=== PATIENT | female | born 1995 | race Caucasian/White ===

== ENCOUNTER 2023-08-11 02:45 | Inpatient (IN) | payer OTHER, SELFPAY ==
[2023-08-11 02:45] VITALS: BP 125/77; PULSE 88; RESP 18; TEMP 36.4; O2SAT 100
[2023-08-11 02:47] VITALS: BMI 28.8
[2023-08-11] MEDS: OLANZapine 5 mg ODT PO ×2 (03:32→17:41)
--- NOTE | 2023-08-11 08:44 | PC.NURSE ---
During morning assessment, patient reprots chronic anxiety and depression. Patient denies SI at this moment. Patient also denies HI and AVH.
[2023-08-11] MEDS: hyDROXYzine 25 mg Capsule 50 MG PO ×2 (11:21→20:08)
--- NOTE | 2023-08-11 11:24 | PC.NURSE ---
Patient anxious, particularly about another patient who has been screaming in the [place]. This nurse administered vistaril 50mg PO to patient
--- NOTE | 2023-08-11 11:53 | PC.NURSE ---
This nurse went to help patient find her lunch tray. There wasn't a tray with her name on it. Patient stated, I don't like being left out, it makes me lose my appetite. This nurse informed patient that she didn't get her name on a tray because she came during the night. Patient said, it's okay, I'm not hungry any more. THis nurse offered to specially order food from the cafeteria for her. Patient stated, No thank you.
[2023-08-11 14:00] VITALS: BP 109/72; PULSE 72; RESP 18; TEMP 36.6; O2SAT 99
--- NOTE | 2023-08-11 14:29 | P.NPUHP_ITS ---
Providers/Chief Complaint Admitting Physician: Adarsh Reyes MD Chief Complaint: SI, Depression HPI NPU History of Present Illness Merly Amaro is a 28 year old female who presented to the emergency department at [facility] in [facility] with depression and suicidal ideation. The patient was transferred to the neuropsychiatric unit in [facility] for further evaluation and treatment. The patient had reported that she has been struggling for depression for several years. She reports having chronic problems with managing her worry and often has struggles with falling asleep. She reports that she had been recently distressed by comments made by her family members that made her feel as if she was not receiving support from them. She endorses that she had cut her her arm with a knife vertically on her wrist and distress a few days ago and was upset that her had told her that it was for attention. She reports low energy. She reports having periods of excess fatigue particularly worse in the winter. She reports that her depression has been worse historically in the winter but continues to be present during the other months as well. She denies any thoughts of hurting others but does report thoughts of wanting to kill herself. She had not reported any clear symptoms supportive of bipolar disorder with no history of grandiosity, decreased need for sleep, excess euphoria or increased irritability for brief periods of time. She did report a family history of bipolar depression. She reports having periods of time where her mood is normal for a few days where she feels good but reports that it is fleeting and that most of her time is spent being depressed and describes the symptoms having occurred since childhood. She denied any history of sexual physical or emotional abuse. The patient does report having struggles with managing her anxiety. She reports concerns regarding finances and states that she has not been able to get support to make medication changes with her psychiatrist that she had been seeing online through an online medication management service. She did not endorse any history of psychosis. She did not endorse any history of PTSD related symptoms or any history of binge eating disorder or bulimia. She reports occasional alcohol use and occasional marijuana use but reports otherwise no history of substance abuse. Inpatient psychiatric history: She had reported 1 previous suicide attempt by consuming excess amounts of marijuana Gummies and states that she spent 1 day in the hospital but was not admitted into the psychiatric unit. Outpatient psychiatric history: She had reported previously receiving online psychiatric management and prior to that having received psychotherapy and medication management at [facility]. Previous medication trials : effexor xr, seroquel, lamotrigine Drug and alcohol history: As above, no history of inpatient or outpatient substance abuse treatment. Medical history: None reported Surgical history: History of knee surgeries -Left knee Family psychiatric history: Notable for bipolar disorder and schizophrenia and maternal and paternal grandparents. Current medications: Effexor XR 150 mg daily (stopped 3 days ago) Legal history: None Social history: Patient was raised in [place] by her biological parents. She had reported no problems with learning. She had graduated high school and was involved in athletics in college with a reported degree in biology. She currently works at a retail store. She has been to her current and has no children at this time. she did not report any history of sexual, physical, or emotional abuse. Meds NPU Home Medications Medication Instructions Recorded Confirmed Last Taken Type buspirone 15 mg tablet 15 mg PO PRN PRN Anxiety 08/11/23 08/11/23 Unknown History Allergies Allergy/AdvReac Type Severity Reaction Status Date / Time No Known Allergies Allergy Verified 08/11/23 03:16 Mental Status Exam MSE Comments: Patient is a casually dressed white female who appeared her stated age with good eye contact. Her gait appeared within normal limits. Her hygiene was fair. There was no evidence of any abnormal involuntary motor movements. There was evidence of mild to moderate psychomotor retardation. Her speech was normal in regards to rate rhythm and prosody. Her thought process was linear logical and goal-directed. Her thought content showed evidence of suicidal ideation with current thoughts of cutting herself. She denied any homicidal ideation. She did not appear to be responding to internal stimuli. There was no clear evidence of delusional thinking. There was significant themes of hopelessness and significant use of projection. She was alert and oriented to person place time and situation. Her insight is poor. Her judgment is poor. Her impulse control appeared limited. Vitals/I&O/Wt Last Vital Signs Temp 97.6 F 08/11/23 02:45 Pulse 88 08/11/23 02:45 Resp 18 08/11/23 02:45 BP 125/77 08/11/23 02:45 Pulse Ox 100 08/11/23 02:45 O2 Del Method Room Air 08/11/23 02:47 Weight last 48 hrs Weight 86.183 kg A&P Assessment and plan (1) Major depressive disorder, recurrent episode, severe with seasonal pattern: (2) DANN (generalized anxiety disorder): (3) Borderline personality disorder: Plan 28-year-old female with complaints of depression since childhood with history of previous medication trials currently endorsing continued depression and suicidal ideation along with significant anxiety. She was agreeable to changes in medications and appears a good candidate long-term for psychotherapy particular cognitive behavioral therapy. 1. ?Encourage individual, group and milieu therapy. 2. Recommend sober living treatment at the highest level of care to which the patient is willing to commit. 3. Continue q-15 minute checks for safety 4. Will start prozac 20mg daily, add seroquel 50mg at night. Involuntary Hold Information 96 Hour Hold: 96 Hour Involuntary Admission: No Attestations NPU Medical Necessity Statement*: Inpatient hospitalization is medically necessary and deemed to be the clinically appropriate intervention at this time.? Medications will be initiated and adjusted as clinically indicated.? The patient will be hospitalized for at least 2 midnights.? The patient?s likely length of stay is 3-5 days.? Coding Level of Care Code Acute Code for [facility] Fwd Diagnoses Major depressive disorder, recurrent episode, severe with seasonal pattern F33.2 DANN (generalized anxiety disorder) F41.1 Borderline personality disorder F60.3
[2023-08-11] MEDS: fluoxetine 20 mg Capsule PO (16:31)
[2023-08-11] MEDS: haloperidol 5 mg Tablet PO (19:20)
[2023-08-11] MEDS: quetiapine 25 mg Tablet 50 MG PO (20:07)
[2023-08-11] MEDS: trazodone 50 mg Tablet PO (20:08)
[2023-08-11 20:45] VITALS: BP 122/74; PULSE 91; RESP 18; TEMP 36.3; O2SAT 98
--- NOTE | 2023-08-11 20:53 | PC.NURSE ---
AT NURSES STATION AT THE BEGINNING OF SHIFT, PT STATES SHE IS HAVING A PANIC ATTACK AND NEED MEDICATIONS NOW. PT WAS GIVEN HALDOL 5MG ORDERED FOR ANXIETY. PT DENIES SI AT THIS TIME BUT STATES I HAVE HAD SUICIDAL THOUGHTS ALL DAY, BUT I HAVE NO PLAN. DENIES HI AND AVH AT THIS TIME. DENIES PAIN. PT WAS ALSO OBSERVED HAVING A SEIZURE. PT WAS ABLE TO COMMUNICATE DURING THE SEIZURE AND REPORTED TO THIS RN I HAVE PSEUDO SEIZURES WHEN I GET WORKED UP. STAFF RESPONDED TO PT ON BENCH AND PT WAS OBSERVED HAVING JERKING MOVEMENTS TO UPPER AND LOWER BODY. WHEN RN STATED YOU'RE OKAY PT STOPPED JERKING AND SAT UP AND HAD A COHERENT CONVERSATION AND WAS IN NO APPARENT DISTRESS. PT RECEIVED TRAZODONE 50 MG FOR SLEEP AND VISTARIL 50 MG FOR ANXIETY. ALL QUESTIONS ANSWERED AND SUPPORT WAS VOICED.
[2023-08-12 06:00] VITALS: BP 101/65; PULSE 67; RESP 16; TEMP 36.3; O2SAT 98
--- NOTE | 2023-08-12 06:39 | PC.NURSE ---
PT REQUIRED PRN MEDICATIONS THIS SHIFT TO DECREASE ANXIETY AND TO SLEEP. PT RECEIVED HALDOL, VISTARIL AND TRAZODONE ORDERED. MEDICATIONS DEEMED EFFECTIVE AT THIS TIME. PT HAS HAD NO OTHER COMPLAINTS OF ANXIETY AND HAS RESTED THROUGHOUT THE SHIFT. PT HAS SLEPT APPROXIMATELY 9-10 HOURS THIS SHIFT. PT IS CURRENTLY RESTING WITH EYES CLOSED WITH NO DISTRESS NOTED AT THIS TIME.
[2023-08-12] MEDS: fluoxetine 20 mg Capsule PO (08:36)
[2023-08-12] MEDS: hyDROXYzine 25 mg Capsule 50 MG PO ×2 (08:36→15:43)
[2023-08-12] MEDS: OLANZapine 5 mg ODT PO (08:50)
--- NOTE | 2023-08-12 08:51 | PC.NURSE ---
Patient visibly anxious, trembeling. Patient verbalized anxiety r/t being on the unit and feeling trapped. Patient states that she wants help, but would rather have outpatient help so that she can return to her home and be in her comfort zone. Patient reports depression caused by the environment. Patient reports that she needs to keep busy to help ease her anxious thoughts. THis nurse offered a Rubix cube or to walk laps. This nurse and patient did one lap in the [place] together before patient was in tears and needed to return to her room. This nurse administered zyprexa 5mg ODT to patient.
--- NOTE | 2023-08-12 09:36 | PC.NURSE ---
patient at window, asking for medication for anxiety. This nurse turned to go to [facility]. This nurse heard a thump, turned around. Patient had fallen and hit her head on the floor, stating that she is having a pseudoseizure.
[2023-08-12] MEDS: LORazepam 1 mg Tablet PO (09:39)
--- NOTE | 2023-08-12 11:12 | PC.NURSE ---
This nurse notified Dr. Mayers and Car Packer of patient's fall. Dr. Mayers verbally ordered CT of head.
--- NOTE | 2023-08-12 11:13 | CT_ITS ---
WS: [id number] CT HEAD TECHNIQUE: Noncontrast CT of the head obtained from the skullbase to the vertex. CLINICAL INFORMATION: unwitnessed fall, patient reports hitting back of head COMPARISON: None. DLP: 1105.[address] scans at [facility] use at least one of these dose optimization techniques: automated e xposure control; mA and/or kV adjustment per patient size (includes targeted exams where dose is matc hed to clinical indication); or iterative reconstruction. FINDINGS: No evidence of intracranial hemorrhage or mass effect. Ventricular system and basal cisterns are hanley nt. No extra-axial fluid collections. No evidence of mass or mass effect. Normal valdez-white different iation. Paranasal sinuses and mastoid air cells are well aerated. .Normal visualized soft tissues. IMPRESSION: 1. No evidence of intracranial hemorrhage or mass effect. 2. No acute intracranial findings.
--- NOTE | 2023-08-12 11:58 | PC.NURSE ---
patient off unit with staff at [address] of head via wheelchair
[2023-08-12 14:00] VITALS: BP 106/69; PULSE 91; RESP 16; TEMP 36.8; O2SAT 98
--- NOTE | 2023-08-12 14:19 | W.PM.NPUPNS ---
Subjective NPU Subjective: 28-year-old female with borderline personality disorder, generalized anxiety disorder, and major depressive disorder recurrent severe with a seasonal pattern admitted with suicidal ideation and worsening depression. She reported having a better response on Prozac and stated that her mood was getting better. She had reported that being here in the hospital had been overwhelming for her as she appeared to have an episode of an anxiety fit that she had endorsed as a pseudoseizure . Patient was alert alert and awake during this episode. She had taken an oral Ativan but reported no benefit in regards to her anxiety. The patient had reported significant frustration with managing her anxiety. She continued to endorse feelings of loneliness and reported a lack of support by family members. Patient reported some improved sleep on Seroquel at night. Patient was given information regarding the use of bright light therapy for managing seasonal variant for depression. The patient was redirectable and had apparently hit her head on the ground and a CT was ordered. Mental Status Exam MSE Comments: Patient is a casually dressed white female who appeared her stated age with good eye contact. Her gait appeared within normal limits. Her hygiene was poor. There was no evidence of any abnormal involuntary motor movements. She was dramatic in presentation, There was evidence of mild to moderate psychomotor retardation. Her speech was normal in regards to rate rhythm and prosody. Her thought process was linear logical and goal-directed. Her thought content showed evidence of fleeting suicidal thoughts stating that being here made her worse. She denied any homicidal ideation. She did not appear to be responding to internal stimuli. There was no clear evidence of delusional thinking. There was significant themes of hopelessness and significant use of projection. She was alert and oriented to person place time and situation. Her insight is poor. Her judgment is poor. Her impulse control appeared limited. Intelligence was commensurate with normal to above average intelligence. Vitals/I&O/Wt Last Vital Signs Temp 97.4 F L 08/12/23 06:00 Pulse 67 08/12/23 06:00 Resp 16 08/12/23 06:00 BP 101/65 08/12/23 06:00 Pulse Ox 98 08/12/23 06:00 O2 Del Method Room Air 08/12/23 06:00 Weight last 48 hrs Weight 86.183 kg A&P Assessment and plan (1) Major depressive disorder, recurrent episode, severe with seasonal pattern: (2) DANN (generalized anxiety disorder): (3) Borderline personality disorder: Plan 28-year-old female with complaints of depression since childhood with history of previous medication trials currently endorsing continued depression and suicidal ideation along with significant anxiety. She was agreeable to changes in medications and appears a good candidate long-term for psychotherapy particular cognitive behavioral therapy. 1. ?Encourage individual, group and milieu therapy. 2. Recommend sober living treatment at the highest level of care to which the patient is willing to commit. 3. Continue q-15 minute checks for safety 4. Will continue prozac 20mg daily, add seroquel 50mg at night. Involuntary Hold Information 96 Hour Hold: 96 Hour Involuntary Admission: No Attestations NPU Medical Necessity Statement*: Inpatient hospitalization is medically necessary and deemed to be the clinically appropriate intervention at this time.? Medications will be initiated and adjusted as clinically indicated.? The patient will be hospitalized for at least 2 midnights.? The patient?s likely length of stay is 1-2 days.? Coding Level of Care Code Acute Code for [facility] Diagnoses Major depressive disorder, recurrent episode, severe with seasonal pattern F33.2 DANN (generalized anxiety disorder) F41.1 Borderline personality disorder F60.3
[2023-08-12 19:46] VITALS: BP 122/91; PULSE 112; RESP 17; TEMP 36.9; O2SAT 98
[2023-08-12] MEDS: haloperidol 5 mg Tablet PO (20:19)
[2023-08-12] MEDS: trazodone 50 mg Tablet PO (20:19)
[2023-08-12] MEDS: quetiapine 25 mg Tablet 50 MG PO (20:19)
--- NOTE | 2023-08-12 21:10 | PC.NURSE ---
PT IN ROOM RESTING AROUSES TO VOICE. DENIES PAIN. DENIES SI/HI AND AVH AT THIS TIME. RATES ANXIETY 7/10 AND DEPRESSION 0/10. PT RECEIVED TRAZODONE 50MG FOR SLEEP AND HALDOL 5 MG FOR REPORTS OF INCREASED ANXIETY.PT APPEARS TO BE IN GOOD SPIRITS AND STATES SHE IS FEELING BETTER. ALL QUESTIONS ANSWERED AND SUPPORT WAS VOICED.
[2023-08-13 06:00] VITALS: BP 124/77; PULSE 69; RESP 16; TEMP 36.6; O2SAT 97
--- NOTE | 2023-08-13 06:32 | PC.NURSE ---
PT RECEIVED PRN MEDICATIONS EARLIER IN THE SHIFT REQUESTED FOR INSOMNIA AND INCREASED REPORTS OF ANXIETY. PT RECEIVED HALDOL AND TRAZODONE ORDERED. MEDICATIONS DEEMED EFFECTIVE AT THIS TIME. PT HAS HAD NO FURTHER COMPLAINTS OF ANXIETY AND SLEPT APPROXIMATELY 9-10 HOURS THIS SHIFT. PT CONTINUES TO REST WITH EYES CLOSED WITH NO DISTRESS NOTED AT THIS TIME.
[2023-08-13] MEDS: fluoxetine 20 mg Capsule PO (08:09)
[2023-08-13] MEDS: hyDROXYzine 25 mg Capsule 50 MG PO (08:21)
[2023-08-13] MEDS: OLANZapine 5 mg ODT PO (10:06)
--- NOTE | 2023-08-13 10:07 | PC.NURSE ---
Patient anxious, stated that the vistaril only helped a little bit. Patient rates anxiety 11/13. Administered zyprexa 5mg ODT to patient. Patient states that she is anxious about seeing the doctor and about being on the unit where she feels trapped.
[2023-08-13] MEDS: haloperidol 5 mg Tablet PO (10:34)
--- NOTE | 2023-08-13 11:05 | PC.NURSE ---
Patient visibly anxious, tearful. This nurse played a breathing exercise video and then a guided meditation video for patient to help with anxiety. This was unsuccessful. This nurse then administered haldol 5mg PO. Patient stated that she is worrying about the what-ifs . This nurse attempted to help patient reason through her worries but was unsuccessful. This nurse took patient outside to the patio for fresh air, which did ease anxiety.
--- NOTE | 2023-08-13 12:12 | P.NPUDS_ITS ---
Diagnoses at Discharge Discharge Diagnosis (1) Major depressive disorder, recurrent episode, severe with seasonal pattern: Status: Acute (2) DANN (generalized anxiety disorder): Status: Acute (3) Borderline personality disorder: Status: Acute Reason for Visit Reason for Visit: SI, Depression Brief History: History of Present Illness Merly Amaro is a 28 year old female who presented to the emergency department at [facility] in [facility] with depression and suicidal ideation. The patient was transferred to the neuropsychiatric unit in [facility] for further evaluation and treatment. The patient had reported that she has been struggling for depression for several years. She reports having chronic problems with managing her worry and often has struggles with falling asleep. She reports that she had been recently distressed by comments made by her family members that made her feel as if she was not receiving support from them. She endorses that she had cut her her arm with a knife vertically on her wrist and distress a few days ago and was upset that her had told her that it was for attention. She reports low energy. She reports having periods of excess fatigue particularly worse in the winter. She reports that her depression has been worse historically in the winter but continues to be present during the other months as well. She denies any thoughts of hurting others but does report thoughts of wanting to kill herself. She had not reported any clear symptoms supportive of bipolar disorder with no history of grandiosity, decreased need for sleep, excess euphoria or increased irritability for brief periods of time. She did report a family history of bipolar depression. She reports having periods of time where her mood is normal for a few days where she feels good but reports that it is fleeting and that most of her time is spent being depressed and describes the symptoms having occurred since childhood. She denied any history of sexual physical or emotional abuse. The patient does report having struggles with managing her anxiety. She reports concerns regarding finances and states that she has not been able to get support to make medication changes with her psychiatrist that she had been seeing online through an online medication management service. She did not endorse any history of psychosis. She did not endorse any history of PTSD related symptoms or any history of binge eating disorder or bulimia. She reports occasional alcohol use and occasional marijuana use but reports otherwise no history of substance abuse. Inpatient psychiatric history: She had reported 1 previous suicide attempt by consuming excess amounts of marijuana Gummies and states that she spent 1 day in the hospital but was not admitted into the psychiatric unit. Outpatient psychiatric history: She had reported previously receiving online psychiatric management and prior to that having received psychotherapy and medication management at [facility]. Previous medication trials : effexor xr, seroquel, lamotrigine Drug and alcohol history: As above, no history of inpatient or outpatient substance abuse treatment. Medical history: None reported Surgical history: History of knee surgeries -Left knee Family psychiatric history: Notable for bipolar disorder and schizophrenia and maternal and paternal grandparents. Current medications: Effexor XR 150 mg daily (stopped 3 days ago) Legal history: None Social history: Patient was raised in [place] by her biological parents. She had reported no problems with learning. She had graduated high school and was involved in athletics in college with a reported degree in biology. She currently works at a retail store. She has been to her current and has no children at this time. she did not report any history of sexual, physical, or emotional abuse. Hospital Course Hospital Course She acclimated to the individual, group and milieu therapies provided. She presented with depression and sleep issues. Her was BuSpar was discontinued and Prozac and seroquel was started with positive results. She then worked with the social work team to look for appropriate resources and aftercare. She has significant improvement during the hospitalization and was able to contract for safety outside of the hospital prior to discharge. At the outside hospital, the patient had routine laboratory studies which were within normal limits except for a few outliers. Additionally, there was a general medical evaluation which was also within normal limits and revealed no new acute processes. At the time of discharge, she denied psychosis or lethality. Mood and anxiety were well managed. The patient endorsed a plan to avoid all drugs of abuse and follow up with the aftercare recommendations of the treatment team. The patient was evaluated and deemed to be absent credible lethality and had achieved the maximum benefit from an inpatient hospitalization, and so was discharged. Involuntary Hold Information 96 Hour Hold: 96 Hour Involuntary Admission: No Mental Status Exam MSE Comments: Patient is a casually dressed white female who appeared her stated age with good eye contact. Her gait appeared within normal limits. Her hygiene was poor. There was no evidence of any abnormal involuntary motor movements. She was dramatic in presentation, There was evidence of mild psychomotor retardation. Her speech was normal in regards to rate rhythm and prosody. Her thought process was linear logical and goal-directed. She denied suicidal or homicidal ideation. She did not appear to be responding to internal stimuli. There was no clear evidence of delusional thinking. She was alert and oriented to person place time and situation. Her insight and judgment is limited but improving. Her impulse control appeared limited. Intelligence was commensurate with normal to above average intelligence. Discharge Data Studies Completed and Pending: Completed Studies During Hospitalization Category Date Time Status CT head wo con* 7 [id number] Routine Cat Scan 08/12/23 11:13 Completed Vitals: Last Vital Signs Temp 97.8 F 08/13/23 06:00 Pulse 69 08/13/23 06:00 Resp 16 08/13/23 06:00 BP 124/77 08/13/23 06:00 Pulse Ox 97 08/13/23 06:00 O2 Del Method Room Air 08/13/23 06:00 Discharge Plan Discharge Patient Disposition: Home Condition: Stable Prescriptions: New fluoxetine 20 mg Capsule 20 mg PO DAILY 30 Days Qty: 30 1RF quetiapine 50 mg tablet 50 mg PO BEDTIME 30 Days Qty: 30 1RF trazodone 50 mg Tablet 50 mg PO BEDTIME PRN (Reason: Sleep) 30 Days Qty: 30 1RF Discontinued buspirone 15 mg tablet 15 mg PO PRN PRN (Reason: Anxiety) Discharge Orders: Discharge Order (Routine); Ordered 08/13/23 Ordered By: Adarsh Reyes Referrals: [facility] -Merly Lopez DO [Other] - 08/16/23 3:30 pm (Follow up with Tabitha Duque NP) [facility] [Other] - 1-3 days (Walk in for services Tuesday thru Tuesday 8am to 4pm) Discharge Diet: Regular Discharge Activity: Resume usual activity Patient Instructions: Opioid Safety Discharge Attestations NPU Time Spent in Discharge Care*: less than 30 min Specific Discharge Activities: Specific discharge activities: educating patient, discussing with case briefer/social workers/dc planners, edgarn mechelle/other paperwork and evaluating patient/reviewing data Coding Level of Care Code Acute Code for [facility] Fwd Diagnoses Major depressive disorder, recurrent episode, severe with seasonal pattern F33.2 DANN (generalized anxiety disorder) F41.1 Borderline personality disorder F60.3
[2023-08-13 13:12] VITALS: BP 124/77; PULSE 69; RESP 16; TEMP 36.6; O2SAT 97
== END 2023-08-13 14:22 | disposition home or self-care (01) | DRG 885 ==
PROVIDERS: Admitting Provider Psychiatry & Neurology Psychiatry; Visit Provider Psychiatry & Neurology Psychiatry
DX: F33.2 Major depressive disorder, recurrent severe without psychotic features (principal); R45.851 Suicidal ideations; F41.1 Generalized anxiety disorder; F60.3 Borderline personality disorder; Z81.8 Family history of other mental and behavioral disorders
CPT/HCPCS: 70450; 97150; 97165